=== PATIENT | male | born 1965 | race Caucasian/White ===

== ENCOUNTER 2017-06-21 09:14 | Inpatient (IN) | payer OTHER ==
[~2017-06-21 09:14] MED LIST: Acetaminophen 1,000 MG in Premix Bag 1 BAG IV SCH; Famotidine 20 MG/2 ML SDV IVPUSH SCH; Ketorolac 30 MG/ML SDV IVPUSH SCH; Ropivacaine 49.25 ML, Ketorolac 30 MG, EPINEPHrine 0.5 MG, cloNIDine 80 MCG in Sodium C... INJECT SCH; Scopolamine 1.5 MG Transdermal Patch TRDERM SCH; Tranexamic Acid 4,000 MG in Sodium Chloride 0.9% 100 ML IV SCH; ceFAZolin 2 GM in Premix Bag 1 BAG IV SCH; oxyCODONE ER 10 MG TAB.ER PO SCH
[2017-06-21] MEDS ORDERED: Propofol 200 MG/20 ML SDV ONE ×3 (09:24→12:56)
[2017-06-21] MEDS ORDERED: Lidocaine 2% 5 ML SDV ONE (09:24)
[2017-06-21] MEDS ORDERED: Midazolam 1 MG/ML 2 ML SDV ONE (09:25)
[2017-06-21] MEDS ORDERED: ePHEDrine 50 MG/ML SDV ONE (09:25)
[2017-06-21] MEDS ORDERED: fentaNYL 100 MCG/2 ML SDV ONE (09:25)
[2017-06-21] MEDS ORDERED: Ondansetron 4 MG/2 ML SDV ONE (09:25)
--- NOTE | 2017-06-21 10:02 | PCM.PREANE ---
Preanesthetic Assessment - Procedure Proposed Procedure: Right TKA - Anesthesia/Transfusion/Family Hx Anesthesia History: Prior Anesthesia Reaction Other Type of Anesthesia Reaction Comment: developed tachycardia- treated with medication Family History of Anesthesia Reaction: No Transfusion History: No Prior Transfusion(s) Additional History: sleep apnea - usses CPAP nightly at home; arrhythmias abated with cessation of chewing tobacco and caffeinated drinks; lost 100 lb over last few years - Review of Systems General: No Symptoms Pulmonary: Other (sleep apnea - CPAP) Cardiovascular: Other (HTN) Gastrointestinal: No Symptoms Neurological: Gait Disturbance (due to knee pain) Other: Reports: Diabetes (Type II, on metformin), Anxiety - Physical Assessment NPO Status Date: 06/20/17 NPO Status Time: 22:00 Height: 5 ft 8 in Weight: 260 lb ASA Class: 3 Mental Status: Alert & Oriented x3 Airway Class: Mallampati = 2 Dentition: Reports: Normal Dentition Thyro-Mental Finger Breadths: 3 Mouth Opening Finger Breadths: 3 ROM/Head Extension: Full Lungs: Clear to Auscultation, Normal Respiratory Effort Cardiovascular: Regular Rate, Regular Rhythm, No Murmurs - Allergies Allergies/Adverse Reactions: Allergies Allergy/AdvReac Type Severity Reaction Status Date / Time No Known Allergies Allergy Verified 06/17/17 14:16 - Blood Blood Available: Yes Product(s) Available: PRBC (T and S) - Anesthesia Plan Free Text/Narrative:: will check FBS Pre-Op Medication Ordered: Other (per surgeon protocol) - Acknowledgements Anesthesia Type Planned: Spinal (w/sedation; may require LMA for PP assist) Pt an Appropriate Candidate for the Planned Anesthesia: Yes Alternatives and Risks of Anesthesia Discussed w Pt/Guardian: Yes Pt/Guardian Understands and Agrees with Anesthesia Plan: Yes PreAnesthesia Questionnaire HEENT History: Reports: Other (See Below) Other HEENT History: wears glasses Cardiovascular History: Reports: Arrhythmia, High Cholesterol, Hypertension Other Cardiovascular History: hx of tachycardia- caused by caffeine and chewing tobacco Respiratory History: Reports: Sleep Apnea, Other (See Below) Other Respiratory History: C-Pap at bedtime Gastrointestinal History: Reports: None Musculoskeletal History: Reports: Arthritis, Fracture Neurological History: Reports: Concussion Endocrine/Metabolic History: Reports: Diabetes, Type II, Obesity/BMI 30+ Oncologic (Cancer) History: - Infectious Disease History Infectious Disease History: Reports: Chicken Pox - Past Surgical History Head Surgeries/Procedures: Reports: None Cardiovascular Surgical History: Reports: None Respiratory Surgical History: Reports: None GI Surgical History: Reports: None Endocrine Surgical History: Reports: None Musculoskeletal Surgical History: Reports: Other (See Below) Other Musculoskeletal Surgeries/Procedures:: ORIF left ankle- has hardware - SUBSTANCE USE Smoking Status *Q: Former Smoker Tobacco Use Within Last Twelve Months: No Second Hand Smoke Exposure: No Days Per Week of Alcohol Use: 3 Number of Drinks Per Day: 2 Total Drinks Per Week: 6 Recreational Drug Use History: No - HOME MEDS Home Medications: Home Meds Lisinopril 10 mg PO DAILY 03/10/14 [History] Pravastatin [Pravachol] 20 mg PO DAILY 03/10/14 [History] Aspirin 81 mg PO BRK 01/16/15 [History] Fish Oil/[place]-3 Fatty Acids [Fish Oil] 1 each PO TID 01/16/15 [History] metFORMIN [Glucophage XR] 500 mg PO BIDMEALS 06/17/17 [History] - CURRENT (IN HOUSE) MEDS Current Meds: Current Medications Famotidine (Pepcid) 40 mg IVPUSH [facility] Acetaminophen 1,000 mg/ Premix 100 mls @ 400 mls/hr IV [facility] Cefazolin Sodium/Dextrose 2 gm (/ Premix) 50 mls @ 100 mls/hr IV [facility] Ropivacaine 49.25 ml/Ketorolac Tromethamine 30 mg/Epinephrine HCl 0.5 mg/ Clonidine HCl 80 mcg/ Sodium Chloride 100 mls @ 50 mls/sec INJECT ASDIRECTED [facility] Lactated Ringer's (Ringers, Lactated) 1,000 mls @ 100 mls/hr IV ASDIRECTED [facility] Tranexamic Acid 4,000 mg/ (Sodium Chloride) 140 mls @ 600 mls/hr IV ASDIRECTED [facility] Ketorolac Tromethamine (Toradol) 30 mg IVPUSH [facility] Oxycodone HCl (Oxycontin) 10 mg PO [facility] Scopolamine (Transderm-Scop) 1.5 mg TRDERM [facility] Discontinued Medications Ephedrine Sulfate (Ephedrine Sulfate) Confirm Administered Dose 50 mg .ROUTE .STK-MED ONE Stop: 06/21/17 09:26 Fentanyl (Sublimaze) Confirm Administered Dose 100 mcg .ROUTE .STK-MED ONE Stop: 06/21/17 09:26 Lidocaine (Xylocaine-Mpf 2%) Confirm Administered Dose 10 ml .ROUTE .STK-MED ONE Stop: 06/21/17 09:25 Midazolam HCl (Versed 1 Mg/Ml) Confirm Administered Dose 2 mg .ROUTE .STK-MED ONE Stop: 06/21/17 09:26 Ondansetron HCl (Zofran) Confirm Administered Dose 4 mg .ROUTE .STK-MED ONE Stop: 06/21/17 09:26 Propofol (Diprivan 20 Ml) Confirm Administered Dose 400 mg .ROUTE .STK-MED ONE Stop: 06/21/17 09:25 Tranexamic Acid (Cyklokapron) Confirm Administered Dose 4,000 mg .ROUTE .STK- MED ONE Stop: 06/21/17 07:57
[2017-06-21] MEDS: Lactated Ringers 1,000 ML IV SCH ×2 (10:08→16:06)
[2017-06-21] MEDS ORDERED: Ondansetron 4 MG/2 ML SDV IV PRN (11:56)
[2017-06-21] MEDS ORDERED: HYDROmorphone/Normal Saline 6 MG/30 ML PCA Vial IV PRN (11:56)
[2017-06-21] MEDS ORDERED: Aluminum Hydroxide/Magnesium Hydroxide/Simethicone Susp 30 ML Cup PO PRN (11:58)
[2017-06-21] MEDS ORDERED: diphenhydrAMINE 25 MG Cap PO PRN (11:58)
[2017-06-21] MEDS ORDERED: Bisacodyl 10 MG Supp RECTAL PRN (11:58)
[2017-06-21] MEDS ORDERED: oxyCODONE 5 MG Tab PO PRN (11:59)
[2017-06-21] MEDS ORDERED: diphenhydrAMINE 50 MG/ML SDV ONE (12:20)
--- NOTE | 2017-06-21 13:53 | PCM.OPNOTE ---
- General Post-Op/Procedure Note Date of Surgery/Procedure: 06/21/17 Operative Procedure(s): R TKA Post-Op Diagnosis: DJD R knee Anesthesia Technique: Moderate Sedation, Spinal Primary Surgeon: Perla Sanford Pin Drafter Operator: Esperanza Prieto Pin Drafter Operator: Manish Levine EBRehan in mLs: 50 Condition: Good Free Text/Narrative:: tt=50 min #[id number]
--- NOTE | 2017-06-21 14:24 | PCM.POSTAN ---
POST ANESTHESIA ASSESSMENT - MENTAL STATUS Mental Status: Alert, Oriented - RESPIRATORY Respiratory Status: Respiratory Rate WNL, Airway Patent, O2 Saturation Stable - CARDIOVASCULAR CV Status: Pulse Rate WNL, Blood Pressure Stable - GASTROINTESTINAL GI Status: No Symptoms - PAIN Pain Score: 0 - POST OP HYDRATION Hydration Status: Adequate & Stable - OBSERVATIONS Free Text/Narrative:: Pt currently stable for discharge to phase II . No apparent anesthesia complications.
[2017-06-21] MEDS: Acetaminophen 1,000 MG in Premix Bag 1 BAG IV SCH ×2 (16:08→21:19)
--- NOTE | 2017-06-21 16:42 | CR ---
EXAMINATION: Right knee HISTORY: TKA COMPARISON: 05/25/2017 TECHNIQUE: 2 views FINDINGS/IMPRESSION: Right total knee hardware demonstrated in good position and alignment. Postopera tive soft tissue changes are noted.
[2017-06-21 16:45] LABS: CHLORIDE,CL 105 mmol/L (98-107); SODIUM,NA 139 mmol/L (136-148)
--- NOTE | 2017-06-21 16:53 | PCM.CONS ---
H&P History of Present Illness - General Date of Service: 06/21/17 Admit Problem/Dx: Admission Diagnosis/Problem Admission Diagnosis/Problem Replacement of total knee joint Source of Information: Patient, Old Records (outpatient clinic records) History Limitations: Reports: No Limitations - History of Present Illness Initial Comments - Free Text/Narative: This 51 year old male with pmh of obesity, DM type 2, HTN and sleep apnea presented today for R TKA with Dr Sanford. Hospitalist service consulted for medical management. Pre-operatively Hector felt good. A1c 5.1%. BP well controlled. He was diagnosed approximately 1 yr ago with DM type 2 and has since lost weight and improved his diet. He quit chewing tobacco 5 years ago and denies alcohol use. He returned from PACU recently and is feeling good, mild pain to R knee. No chest pain or SOB. No other concerns. at bedside. PCP, Dr Russell. - Related Data Allergies/Adverse Reactions: Allergies Allergy/AdvReac Type Severity Reaction Status Date / Time No Known Allergies Allergy Verified 06/17/17 14:16 Home Medications: Home Meds Lisinopril 10 mg PO DAILY 03/10/14 [History] Pravastatin [Pravachol] 20 mg PO DAILY 03/10/14 [History] Aspirin 81 mg PO BRK 01/16/15 [History] Fish Oil/[place]-3 Fatty Acids [Fish Oil] 3 each PO DAILY 01/16/15 [History] metFORMIN [Glucophage XR] 500 mg PO BIDMEALS 06/17/17 [History] Past Medical History HEENT History: Reports: Other (See Below) Other HEENT History: wears glasses Cardiovascular History: Reports: Arrhythmia, High Cholesterol, Hypertension. Denies: Afib, Blood Clots/VTE/DVT, Heart Failure Other Cardiovascular History: hx of tachycardia- caused by caffeine and chewing tobacco Respiratory History: Reports: Sleep Apnea (CPAP) Gastrointestinal History: Reports: None Musculoskeletal History: Reports: Arthritis, Fracture Neurological History: Reports: Concussion Endocrine/Metabolic History: Reports: Diabetes, Type II, Obesity/BMI 30+ Oncologic (Cancer) History: Reports: None - Infectious Disease History Infectious Disease History: Reports: Chicken Pox - Past Surgical History Head Surgeries/Procedures: Reports: None Cardiovascular Surgical History: Reports: None Respiratory Surgical History: Reports: None GI Surgical History: Reports: None Endocrine Surgical History: Reports: None Musculoskeletal Surgical History: Reports: Other (See Below) Other Musculoskeletal Surgeries/Procedures:: ORIF left ankle- has hardware Social & Family History - Family History Family Medical History: Noncontributory - Tobacco Use Smoking Status *Q: Former Smoker Tobacco Use Within Last Twelve Months: Smokeless Tobacco Years of Tobacco use: 30 Used Tobacco, but Quit: Yes Month/Year Tobacco Last Used: Years ago Tobacco Use Comment: quit chew 6 years ago Second Hand Smoke Exposure: No - Caffeine Use Caffeine Use: Reports: None - Alcohol Use Days Per Week of Alcohol Use: 3 Number of Drinks Per Day: 2 Total Drinks Per Week: 6 Alcohol Use Frequency: Rarely, Socially - Recreational Drug Use Recreational Drug Use: No Drug Use in Last 12 Months: No - Living Situation & Occupation Living situation: Reports: Occupation: Employed H&P Review of Systems - Review of Systems: Review Of Systems: See Below General: Reports: No Symptoms. Denies: Fever, Chills, Malaise, Weakness, Fatigue HEENT: Reports: No Symptoms. Denies: Headaches, Hearing Changes, Sinus Congestion, Sore Throat, Vertigo Pulmonary: Reports: No Symptoms. Denies: Shortness of Breath, Cough, Sputum Cardiovascular: Reports: No Symptoms. Denies: Chest Pain, Palpitations, Edema, Lightheadedness Gastrointestinal: Reports: No Symptoms. Denies: Abdominal Pain, Black Stool, Bloody Stool, Nausea, Vomiting Genitourinary: Reports: No Symptoms. Denies: Dysuria, Frequency, Burning Musculoskeletal: Reports: Joint Pain (R knee pain, tolerable, was recently given pain medication.) Psychiatric: Reports: No Symptoms Neurological: Reports: No Symptoms Hematologic/Lymphatic: Reports: No Symptoms Immunologic: Reports: No Symptoms Exam - Exam Exam: See Below - Vital Signs Vital Signs: Last Vital Signs Temp 98.1 F 06/21/17 13:43 Pulse 51 L 06/21/17 14:23 Resp 13 06/21/17 14:23 BP 99/48 L 06/21/17 14:23 Pulse Ox 99 06/21/17 14:23 Weight: 117.934 kg - Exam General: Alert, Oriented, Cooperative HEENT: Conjunctiva Clear, Mucosa Moist & [place], Nares Patent, Normal Nasal Septum , Posterior Pharynx Clear Neck: Supple, Trachea Midline, 2 Lungs: Clear to Auscultation, Normal Respiratory Effort Cardiovascular: Regular Rate, Regular Rhythm GI/Abdominal Exam: Normal Bowel Sounds, Soft, Non-Tender, No Organomegaly, No Distention, No Abnormal Bruit, No Mass, Pelvis Stable Back Exam: Normal Inspection, Full Range of Motion, NT Extremities: Normal Inspection, Normal Range of Motion, Non-Tender, No Pedal Edema, Normal Capillary Refill Skin: Incision (R tKA, dressing C/D/I, polar ice intact.) Neuro Extensive - Mental Status: Alert, Oriented x3 Neuro Extensive - Motor, Sensory, Reflexes: CN II-XII Intact Psychiatric: Alert, Normal Affect, Normal Mood - Patient Data Lab Results Last 24 hrs: Laboratory Results - last 24 hr 06/21/17 06/21/17 Range/Units 09:58 16:20 WBC 8.69 (4.0-11.0) K/uL RBC 4.46 L (4.50-5.90) M/uL Hgb 14.5 (13.0-17.0) g/dL Hct 42.4 (38.0-50.0) % MCV 95.1 (80.0-98.0) fL MCH 32.5 H (27.0-32.0) pg MCHC 34.2 (31.0-37.0) g/dL RDW Std Deviation 49.5 (28.0-62.0) fl RDW Coeff of [place] 14 (11.0-15.0) % Plt Count 231 (150-400) K/uL MPV 12.00 (7.40-12.00) fL Neut % (Auto) 48.4 (48.0-80.0) % Lymph % (Auto) 39.4 (16.0-40.0) % [place] % (Auto) 10.5 (0.0-15.0) % Eos % (Auto) 1.2 (0.0-7.0) % Baso % (Auto) 0.5 (0.0-1.5) % Neut # (Auto) 4.2 (1.4-5.7) K/uL Lymph # (Auto) 3.4 H (0.6-2.4) K/uL [place] # (Auto) 0.9 H (0.0-0.8) K/uL Eos # (Auto) 0.1 (0.0-0.7) K/uL Baso # (Auto) 0.0 (0.0-0.1) K/uL Nucleated RBC % 0.0 /100WBC Nucleated RBCs # 0 K/uL Blood Type O POSITIVE Antibody Screen NEGATIVE Result Diagrams: 06/21/17 16:20 06/21/17 16:20 Consult PN Assessment/Plan Procedures: Procedures ASSAY OF AMYLASE (11/17/15) ASSAY OF LACTIC ACID (11/17/15) ASSAY OF LIPASE (11/17/15) ASSAY OF TROPONIN QUANT (11/17/15) BLOOD CULTURE FOR BACTERIA (11/17/15) CHEST X-RAY 2VW FRONTAL&LATL (11/17/15) COMPLETE CBC W/AUTO DIFF WBC (11/17/15) COMPREHEN METABOLIC PANEL (11/17/15) CT ABD & PELVIS W/O CONTRAST (11/17/15) CULTURE SCREEN ONLY (03/10/14) ELECTROCARDIOGRAM TRACING (11/17/15) EMERGENCY DEPT VISIT (11/17/15) EMERGENCY DEPT VISIT (01/16/15) EVALUATE PT USE OF INHALER (01/16/15) HYDRATE IV INFUSION ADD-ON (11/17/15) INFLUENZA ASSAY W/OPTIC (11/17/15) LIPID PANEL (11/17/15) METABOLIC PANEL TOTAL CA (11/17/15) MRI JNT OF LWR EXTRE W/O DYE (05/25/17) PROTHROMBIN TIME (11/17/15) ROUTINE VENIPUNCTURE (11/17/15) STREP A AG IA (03/10/14) THER/PROPH/DIAG INJ IV PUSH (11/17/15) TX/PRO/DX INJ NEW DRUG ADDON (11/17/15) URINALYSIS AUTO W/SCOPE (11/17/15) X-RAY EXAM KNEE 4 OR MORE (05/25/17) (1) S/P total knee arthroplasty SNOMED Code(s): 7006957552849, 230425144, 5046131954692 Code(s): Z96.659 - PRESENCE OF UNSPECIFIED ARTIFICIAL KNEE JOINT Current Visit: Yes Qualifiers: Laterality: right Qualified Code(s): Z96.651 - Presence of right artificial knee joint (2) HTN (hypertension) SNOMED Code(s): 12567902 Code(s): I10 - ESSENTIAL (PRIMARY) HYPERTENSION Current Visit: Yes Qualifiers: Hypertension type: essential hypertension Qualified Code(s): I10 - Essential (primary) hypertension (3) DM type 2 (diabetes mellitus, type 2) SNOMED Code(s): 87819515 Code(s): E11.9 - TYPE 2 DIABETES MELLITUS WITHOUT COMPLICATIONS Current Visit: Yes Qualifiers: Diabetes mellitus alf insulin use: without alf use Diabetes mellitus complication status: without complication Qualified Code(s): E11.9 - Type 2 diabetes mellitus without complications (4) Obesity SNOMED Code(s): 687216812, 728614716 Code(s): E66.9 - OBESITY, UNSPECIFIED Current Visit: Yes (5) Sleep apnea SNOMED Code(s): 00599164 Code(s): G47.30 - SLEEP APNEA, UNSPECIFIED Current Visit: Yes Qualifiers: Sleep apnea type: unspecified type Qualified Code(s): G47.30 - Sleep apnea , unspecified Problem List Initiated/Reviewed/Updated: Yes My Orders Last 24 Hours: My Active Orders 06/21/17 16:20 BMP [BASIC METABOLIC PANEL,BMP] [CHEM] Routine 06/21/17 17:00 Insulin Aspart [NovoLOG] See Protocol SUBCUT TIDAC Plan: This 51 year old male admitted with R TKA to Dr Sanford. Hospitalist service consulted for medical management of HTN and DM type 2. 1. S/P R TKA; Orders per Orthopedics. 2. DM Type 2: Hold Metformin during admission. Novolog SSI as needed. Well controlled with A1c of 5.1. Monitor BMP, stable. 3. HTN: Stable. Continue Lisinopril. 4. Sleep apnea: Stable, continue CPAP use at night. VTE prophylaxis: ASA BID per Orthopedics
[2017-06-21] MEDS: Insulin Aspart 100 Units/ML 3 ML Pen SUBCUT SCH (17:41)
[2017-06-21] MEDS ORDERED: Pravastatin 40 MG Tab PO SCH (21:00)
[2017-06-21] MEDS: ceFAZolin 2 GM in Premix Bag 1 BAG IV SCH (21:14)
[2017-06-21] MEDS: Ketorolac 30 MG/ML SDV IVPUSH SCH (21:14)
[2017-06-21] MEDS: Docusate Sodium 100 MG Cap PO SCH (21:15)
[2017-06-21] MEDS: oxyCODONE ER 10 MG TAB.ER PO SCH (21:16)
[2017-06-22] MEDS: Ketorolac 30 MG/ML SDV IVPUSH SCH (01:15)
[2017-06-22] MEDS: Lactated Ringers 1,000 ML IV SCH (03:10)
[2017-06-22] MEDS: Acetaminophen 1,000 MG in Premix Bag 1 BAG IV SCH (04:43)
[2017-06-22] MEDS: ceFAZolin 2 GM in Premix Bag 1 BAG IV SCH (04:44)
--- NOTE | 2017-06-22 06:07 | PCM48HPAN ---
Post Anesthesia Note - EVALUATION WITHIN 48HRS OF ANESTHETIC Vital Signs in Normal Range: Yes Patient Participated in Evaluation: Yes Respiratory Function Stable: Yes Airway Patent: Yes Cardiovascular Function Stable: Yes Hydration Status Stable: Yes Pain Control Satisfactory: Yes Nausea and Vomiting Control Satisfactory: Yes Mental Status Recovered: Yes Resp Rate: 17 - COMMENTS/OBSERVATIONS Free Text/Narrative:: Pt doing great this AM. States that he is a little stiff, but pain control has been good. No reports of nausea and reeducated on his scopalamine patch. No apparent anesthesia complications.
[2017-06-22 06:25] LABS: CHLORIDE,CL 104 mmol/L (98-107); SODIUM,NA 139 mmol/L (136-148)
--- NOTE | 2017-06-22 06:39 | PCM.CONSN ---
- General Info Date of Service: 06/22/17 Admission Dx/Problem (Free Text): Admission Diagnosis/Problem Admission Diagnosis/Problem Replacement of total knee joint Subjective Update: Feeling good today. No chest pain or shortness of breath. Some knee pain. Functional Status: Reports: Pain Controlled, Tolerating Diet, Ambulating, Urinating - Review of Systems General: Reports: No Symptoms. Denies: Fever, Weakness, Fatigue HEENT: Reports: No Symptoms Pulmonary: Reports: No Symptoms. Denies: Shortness of Breath, Cough, Sputum Cardiovascular: Reports: No Symptoms. Denies: Chest Pain, Edema Gastrointestinal: Reports: No Symptoms. Denies: Abdominal Pain, Nausea, Vomiting Genitourinary: Reports: No Symptoms. Denies: Dysuria, Frequency, Burning Musculoskeletal: Reports: Joint Pain (R knee pain, but tolerable. ) Skin: Reports: No Symptoms Neurological: Reports: No Symptoms Psychiatric: Reports: No Symptoms - Patient Data Vitals - Most Recent: Last Vital Signs Temp 97.4 F 06/22/17 05:00 Pulse 69 06/22/17 05:00 Resp 17 06/22/17 06:06 BP 108/57 L 06/22/17 05:00 Pulse Ox 99 06/22/17 05:00 Weight - Most Recent: 117.934 kg I&O - Last 24 Hours: Intake & Output 06/21/17 06/21/17 06/22/17 14:59 22:59 06:59 Intake Total 2900 250 1000 Output Total 430 3200 Balance 2470 250 -2200 Lab Results Last 24 Hours: Laboratory Results - last 24 hr 06/21/17 06/21/17 06/21/17 Range/Units 09:58 15:02 16:20 WBC 8.69 (4.0-11.0) K/uL RBC 4.46 L (4.50-5.90) M/uL Hgb 14.5 (13.0-17.0) g/dL Hct 42.4 (38.0-50.0) % MCV 95.1 (80.0-98.0) fL MCH 32.5 H (27.0-32.0) pg MCHC 34.2 (31.0-37.0) g/dL RDW Std Deviation 49.5 (28.0-62.0) fl RDW Coeff of [place] 14 (11.0-15.0) % Plt Count 231 (150-400) K/uL MPV 12.00 (7.40-12.00) fL Neut % (Auto) 48.4 (48.0-80.0) % Lymph % (Auto) 39.4 (16.0-40.0) % [place] % (Auto) 10.5 (0.0-15.0) % Eos % (Auto) 1.2 (0.0-7.0) % Baso % (Auto) 0.5 (0.0-1.5) % Neut # (Auto) 4.2 (1.4-5.7) K/uL Lymph # (Auto) 3.4 H (0.6-2.4) K/uL [place] # (Auto) 0.9 H (0.0-0.8) K/uL Eos # (Auto) 0.1 (0.0-0.7) K/uL Baso # (Auto) 0.0 (0.0-0.1) K/uL Nucleated RBC % 0.0 /100WBC Nucleated RBCs # 0 K/uL Sodium (136-148) mmol/L Potassium (3.5-5.1) mmol/L Chloride (98-107) mmol/L Carbon Dioxide (21.0-32.0) mmol/L BUN (7.0-18.0) mg/dL Creatinine (0.8-1.3) mg/dL Est Cr Clr Drug Dosing mL/min Estimated GFR (MDRD) ml/min Glucose (74-106) mg/dL POC Glucose 74 (60-110) mg/dL Calcium (8.5-10.1) mg/dL Blood Type O POSITIVE Antibody Screen NEGATIVE 06/21/17 06/21/17 06/22/17 Range/Units 16:20 21:21 05:55 WBC (4.0-11.0) K/uL RBC (4.50-5.90) M/uL Hgb 13.1 (13.0-17.0) g/dL Hct 38.9 (38.0-50.0) % MCV (80.0-98.0) fL MCH (27.0-32.0) pg MCHC (31.0-37.0) g/dL RDW Std Deviation (28.0-62.0) fl RDW Coeff of [facility]cy (11.0-15.0) % Plt Count (150-400) K/uL MPV (7.40-12.00) fL Neut % (Auto) (48.0-80.0) % Lymph % (Auto) (16.0-40.0) % [place] % (Auto) (0.0-15.0) % Eos % (Auto) (0.0-7.0) % Baso % (Auto) (0.0-1.5) % Neut # (Auto) (1.4-5.7) K/uL Lymph # (Auto) (0.6-2.4) K/uL [place] # (Auto) (0.0-0.8) K/uL Eos # (Auto) (0.0-0.7) K/uL Baso # (Auto) (0.0-0.1) K/uL Nucleated RBC % /100WBC Nucleated RBCs # K/uL Sodium 139 (136-148) mmol/L Potassium 3.7 (3.5-5.1) mmol/L Chloride 105 (98-107) mmol/L Carbon Dioxide 27.3 (21.0-32.0) mmol/L BUN 10 (7.0-18.0) mg/dL Creatinine 0.9 (0.8-1.3) mg/dL Est Cr Clr Drug Dosing 93.94 mL/min Estimated GFR (MDRD) > 60.0 ml/min Glucose 91 (74-106) mg/dL POC Glucose 115 H (60-110) mg/dL Calcium 8.9 (8.5-10.1) mg/dL Blood Type Antibody Screen 06/22/17 06/22/17 Range/Units 05:55 06:21 WBC (4.0-11.0) K/uL RBC (4.50-5.90) M/uL Hgb (13.0-17.0) g/dL Hct (38.0-50.0) % MCV (80.0-98.0) fL MCH (27.0-32.0) pg MCHC (31.0-37.0) g/dL RDW Std Deviation (28.0-62.0) fl RDW Coeff of [place]cy (11.0-15.0) % Plt Count (150-400) K/uL MPV (7.40-12.00) fL Neut % (Auto) (48.0-80.0) % Lymph % (Auto) (16.0-40.0) % [place] % (Auto) (0.0-15.0) % Eos % (Auto) (0.0-7.0) % Baso % (Auto) (0.0-1.5) % Neut # (Auto) (1.4-5.7) K/uL Lymph # (Auto) (0.6-2.4) K/uL [place] # (Auto) (0.0-0.8) K/uL Eos # (Auto) (0.0-0.7) K/uL Baso # (Auto) (0.0-0.1) K/uL Nucleated RBC % /100WBC Nucleated RBCs # K/uL Sodium 139 (136-148) mmol/L Potassium 4.3 (3.5-5.1) mmol/L Chloride 104 (98-107) mmol/L Carbon Dioxide 30.9 (21.0-32.0) mmol/L BUN 14 (7.0-18.0) mg/dL Creatinine 0.9 (0.8-1.3) mg/dL Est Cr Clr Drug Dosing 93.94 mL/min Estimated GFR (MDRD) > 60.0 ml/min Glucose 92 (74-106) mg/dL POC Glucose 77 (60-110) mg/dL Calcium 8.5 (8.5-10.1) mg/dL Blood Type Antibody Screen Med Orders - Current: Current Medications Al Hydroxide/Mg Hydroxide (Mag-Al Plus) 30 ml PO Q4H PRN PRN Reason: indigestion Aspirin (Ecotrin) 325 mg PO BID [place] Bisacodyl (Dulcolax) 10 mg RECTAL DAILY PRN PRN Reason: Constipation Celecoxib (Celebrex) 200 mg PO BID [place] Diphenhydramine HCl (Benadryl) 25 - 50 mg PO Q6H PRN PRN Reason: Itching Docusate Sodium (Colace) 100 mg PO BID [facility] Last Admin: 06/21/17 21:15 Dose: 100 mg Famotidine (Pepcid) 40 mg PO DAILY [place] Hydromorphone HCl (Dilaudid [employer] 6 Mg In Ns 30 Ml) 6 mg IV ASDIRECTED PRN; Protocol PRN Reason: Pain Stop: 06/22/17 08:00 Last Admin: 06/21/17 13:53 Dose: 6 mg Hydromorphone HCl (Dilaudid) 0.5 - 1 mg IVPUSH Q3H PRN PRN Reason: Pain Lactated Ringer's (Ringers, Lactated) 1,000 mls @ 100 mls/hr IV ASDIRECTED [facility] Last Admin: 06/22/17 03:10 Dose: 100 mls/hr Insulin Aspart (Novolog) 0 unit SUBCUT TIDAC [facility]; Protocol Last Admin: 06/21/17 17:41 Dose: Not Given Lisinopril (Prinivil) 10 mg PO DAILY [facility] Ondansetron HCl (Zofran) 4 mg IV Q6HR PRN PRN Reason: NAUSEA/VOMITING Oxycodone HCl (Oxycodone) 5 - 10 mg PO Q4H PRN PRN Reason: Pain Stop: 06/22/17 08:00 Last Admin: 06/21/17 16:00 Dose: 10 mg Oxycodone HCl (Oxycontin) 10 mg PO Q12HR [facility] Last Admin: 06/21/17 21:16 Dose: 10 mg Oxycodone/Acetaminophen (Percocet 325-5 Mg) 1 - 2 tab PO Q4H PRN PRN Reason: Pain Pravastatin Sodium (Pravachol) 20 mg PO BEDTIME [facility] Last Admin: 06/21/17 21:16 Dose: 20 mg Scopolamine (Transderm-Scop) 1.5 mg TRDERM ONARRIVE [facility] Last Admin: 06/21/17 10:08 Dose: 1.5 mg Discontinued Medications Diphenhydramine HCl (Benadryl) Confirm Administered Dose 50 mg .ROUTE .STK-MED ONE Stop: 06/21/17 12:21 Ephedrine Sulfate (Ephedrine Sulfate) Confirm Administered Dose 50 mg .ROUTE .STK-MED ONE Stop: 06/21/17 09:26 Famotidine (Pepcid) 40 mg IVPUSH ONARRIVE [facility] Last Admin: 06/21/17 10:06 Dose: 40 mg Fentanyl (Sublimaze) Confirm Administered Dose 100 mcg .ROUTE .STK-MED ONE Stop: 06/21/17 09:26 Acetaminophen 1,000 mg/ Premix 100 mls @ 400 mls/hr IV ONARRIVE [facility] Last Admin: 06/21/17 10:05 Dose: 400 mls/hr Cefazolin Sodium/Dextrose 2 gm (/ Premix) 50 mls @ 100 mls/hr IV ONCALL [facility] Ropivacaine 49.25 ml/Ketorolac Tromethamine 30 mg/Epinephrine HCl 0.5 mg/ Clonidine HCl 80 mcg/ Sodium Chloride 100 mls @ 50 mls/sec INJECT ASDIRECTED [facility] Tranexamic Acid 4,000 mg/ (Sodium Chloride) 140 mls @ 600 mls/hr IV ASDIRECTED [place] Acetaminophen 1,000 mg/ Premix 100 mls @ 400 mls/hr IV Q6H [facility] Stop: 06/22/17 04:14 Last Admin: 06/22/17 04:43 Dose: 400 mls/hr Cefazolin Sodium/Dextrose 2 gm (/ Premix) 50 mls @ 100 mls/hr IV Q8H [facility] Stop: 06/22/17 04:29 Last Admin: 06/22/17 04:44 Dose: 100 mls/hr Ketorolac Tromethamine (Toradol) 30 mg IVPUSH ONARRIVE [facility] Last Admin: 06/21/17 10:07 Dose: 30 mg Ketorolac Tromethamine (Toradol) 30 mg IVPUSH Q6H [facility] Stop: 06/22/17 02:01 Last Admin: 06/22/17 01:15 Dose: 30 mg Lidocaine (Xylocaine-Mpf 2%) Confirm Administered Dose 10 ml .ROUTE .STK-MED ONE Stop: 06/21/17 09:25 Midazolam HCl (Versed 1 Mg/Ml) Confirm Administered Dose 2 mg .ROUTE .STK-MED ONE Stop: 06/21/17 09:26 Ondansetron HCl (Zofran) Confirm Administered Dose 4 mg .ROUTE .STK-MED ONE Stop: 06/21/17 09:26 Oxycodone HCl (Oxycontin) 10 mg PO ONARRIVE [facility] Last Admin: 06/21/17 10:05 Dose: 10 mg Propofol (Diprivan 20 Ml) Confirm Administered Dose 400 mg .ROUTE .STK-MED ONE Stop: 06/21/17 09:25 Propofol (Diprivan 20 Ml) Confirm Administered Dose 200 mg .ROUTE .STK-MED ONE Stop: 06/21/17 12:39 Propofol (Diprivan 20 Ml) Confirm Administered Dose 200 mg .ROUTE .STK-MED ONE Stop: 06/21/17 12:57 Tranexamic Acid (Cyklokapron) Confirm Administered Dose 4,000 mg .ROUTE .STK- MED ONE Stop: 06/21/17 07:57 - Exam General: Alert, Oriented, Cooperative, No Acute Distress Lungs: Clear to Auscultation, Normal Respiratory Effort Cardiovascular: Regular Rate, Regular Rhythm Back Exam: Normal Inspection, Full Range of Motion Extremities: Normal Inspection, Normal Range of Motion, Non-Tender, No Pedal Edema, Normal Capillary Refill Wound/Incisions: Dressing Dry and Intact (MANDIE to R knee, intact. ). No: Erythema Neurological: No New Focal Deficit Psy/Mental Status: Alert, Normal Affect, Normal Mood Consult PN Assessment/Plan Procedures: Procedures ASSAY OF AMYLASE (11/17/15) ASSAY OF LACTIC ACID (11/17/15) ASSAY OF LIPASE (11/17/15) ASSAY OF TROPONIN QUANT (11/17/15) BLOOD CULTURE FOR BACTERIA (11/17/15) CHEST X-RAY 2VW FRONTAL&LATL (11/17/15) COMPLETE CBC W/AUTO DIFF WBC (11/17/15) COMPREHEN METABOLIC PANEL (11/17/15) CT ABD & PELVIS W/O CONTRAST (11/17/15) CULTURE SCREEN ONLY (03/10/14) ELECTROCARDIOGRAM TRACING (11/17/15) EMERGENCY DEPT VISIT (11/17/15) EMERGENCY DEPT VISIT (01/16/15) EVALUATE PT USE OF INHALER (01/16/15) HYDRATE IV INFUSION ADD-ON (11/17/15) INFLUENZA ASSAY W/OPTIC (11/17/15) LIPID PANEL (11/17/15) METABOLIC PANEL TOTAL CA (11/17/15) MRI JNT OF LWR EXTRE W/O DYE (05/25/17) PROTHROMBIN TIME (11/17/15) ROUTINE VENIPUNCTURE (11/17/15) STREP A AG IA (03/10/14) THER/PROPH/DIAG INJ IV PUSH (11/17/15) TX/PRO/DX INJ NEW DRUG ADDON (11/17/15) URINALYSIS AUTO W/SCOPE (11/17/15) X-RAY EXAM KNEE 4 OR MORE (05/25/17) (1) S/P total knee arthroplasty SNOMED Code(s): 4998917415513, 695839129, 8941968663604 Code(s): Z96.659 - PRESENCE OF UNSPECIFIED ARTIFICIAL KNEE JOINT Current Visit: Yes Qualifiers: Laterality: right Qualified Code(s): Z96.651 - Presence of right artificial knee joint (2) HTN (hypertension) SNOMED Code(s): 05736864 Code(s): I10 - ESSENTIAL (PRIMARY) HYPERTENSION Current Visit: Yes Qualifiers: Hypertension type: essential hypertension Qualified Code(s): I10 - Essential (primary) hypertension (3) DM type 2 (diabetes mellitus, type 2) SNOMED Code(s): 73016228 Code(s): E11.9 - TYPE 2 DIABETES MELLITUS WITHOUT COMPLICATIONS Current Visit: Yes Qualifiers: Diabetes mellitus exterminator insulin use: without exterminator use Diabetes mellitus complication status: without complication Qualified Code(s): E11.9 - Type 2 diabetes mellitus without complications (4) Obesity SNOMED Code(s): 704145362, 833146932 Code(s): E66.9 - OBESITY, UNSPECIFIED Current Visit: Yes (5) Sleep apnea SNOMED Code(s): 58798057 Code(s): G47.30 - SLEEP APNEA, UNSPECIFIED Current Visit: Yes Qualifiers: Sleep apnea type: unspecified type Qualified Code(s): G47.30 - Sleep apnea , unspecified Problem List Initiated/Reviewed/Updated: Yes My Orders Last 24 Hours: My Active Orders 06/21/17 17:00 Insulin Aspart [NovoLOG] See Protocol SUBCUT [facility] 06/23/17 05:11 BMP [BASIC METABOLIC PANEL,BMP] [CHEM] AM Plan: This 51 year old male admitted with R TKA to Dr Sanford. Hospitalist service consulted for medical management of HTN and DM type 2. 1. S/P R TKA; Orders per Orthopedics. 2. DM Type 2: BS well controlled. Hold Metformin during admission. Novolog SSI as needed. Well controlled with A1c of 5.1. Monitor BMP, stable. 3. HTN: Stable. Continue Lisinopril. 4. Sleep apnea: Stable, continue CPAP use at night. VTE prophylaxis: ASA BID per Orthopedics
[2017-06-22] MEDS: Insulin Aspart 100 Units/ML 3 ML Pen SUBCUT SCH ×2 (07:45→11:35)
[2017-06-22] MEDS ORDERED: HYDROmorphone 1 MG/ML Syringe IVPUSH PRN (08:00)
[2017-06-22] MEDS ORDERED: Acetaminophen/oxyCODONE 325-5 MG Tab PO PRN (08:00)
--- NOTE | 2017-06-22 08:03 | PCM.SURGPN ---
- General Info Date of Service: 06/22/17 Date of Surgery/Procedure: 06/21/17 POD#: 1 - Review of Systems Systems Review Comment:: NAEO. Having some pain in right knee but oral pain medications keeping it tolerable. Denies fever, chill, nausea, vomiting, chest pain, or SOB. Up in chair, has not yet worked with PT. Tolerating oral intake. Watson in place. - Patient Data Vitals - Most Recent: Last Vital Signs Temp 36.3 C 06/22/17 05:00 Pulse 69 06/22/17 05:00 Resp 17 06/22/17 06:06 BP 108/57 L 06/22/17 05:00 Pulse Ox 99 06/22/17 05:00 Weight - Most Recent: 117.934 kg I&O - Last 24 Hours: Intake & Output 06/21/17 06/22/17 06/22/17 22:59 06:59 14:59 Intake Total 250 1000 Output Total 3200 Balance 250 -2200 Lab Results Last 24 Hrs: Laboratory Results - last 24 hr 06/21/17 06/21/17 06/21/17 Range/Units 09:58 15:02 16:20 WBC 8.69 (4.0-11.0) K/uL RBC 4.46 L (4.50-5.90) M/uL Hgb 14.5 (13.0-17.0) g/dL Hct 42.4 (38.0-50.0) % MCV 95.1 (80.0-98.0) fL MCH 32.5 H (27.0-32.0) pg MCHC 34.2 (31.0-37.0) g/dL RDW Std Deviation 49.5 (28.0-62.0) fl RDW Coeff of [place] 14 (11.0-15.0) % Plt Count 231 (150-400) K/uL MPV 12.00 (7.40-12.00) fL Neut % (Auto) 48.4 (48.0-80.0) % Lymph % (Auto) 39.4 (16.0-40.0) % [place] % (Auto) 10.5 (0.0-15.0) % Eos % (Auto) 1.2 (0.0-7.0) % Baso % (Auto) 0.5 (0.0-1.5) % Neut # (Auto) 4.2 (1.4-5.7) K/uL Lymph # (Auto) 3.4 H (0.6-2.4) K/uL [place] # (Auto) 0.9 H (0.0-0.8) K/uL Eos # (Auto) 0.1 (0.0-0.7) K/uL Baso # (Auto) 0.0 (0.0-0.1) K/uL Nucleated RBC % 0.0 /100WBC Nucleated RBCs # 0 K/uL Sodium (136-148) mmol/L Potassium (3.5-5.1) mmol/L Chloride (98-107) mmol/L Carbon Dioxide (21.0-32.0) mmol/L BUN (7.0-18.0) mg/dL Creatinine (0.8-1.3) mg/dL Est Cr Clr Drug Dosing mL/min Estimated GFR (MDRD) ml/min Glucose (74-106) mg/dL POC Glucose 74 (60-110) mg/dL Calcium (8.5-10.1) mg/dL Blood Type O POSITIVE Antibody Screen NEGATIVE 06/21/17 06/21/17 06/22/17 Range/Units 16:20 21:21 05:55 WBC (4.0-11.0) K/uL RBC (4.50-5.90) M/uL Hgb 13.1 (13.0-17.0) g/dL Hct 38.9 (38.0-50.0) % MCV (80.0-98.0) fL MCH (27.0-32.0) pg MCHC (31.0-37.0) g/dL RDW Std Deviation (28.0-62.0) fl RDW Coeff of [place] (11.0-15.0) % Plt Count (150-400) K/uL MPV (7.40-12.00) fL Neut % (Auto) (48.0-80.0) % Lymph % (Auto) (16.0-40.0) % [place] % (Auto) (0.0-15.0) % Eos % (Auto) (0.0-7.0) % Baso % (Auto) (0.0-1.5) % Neut # (Auto) (1.4-5.7) K/uL Lymph # (Auto) (0.6-2.4) K/uL [place] # (Auto) (0.0-0.8) K/uL Eos # (Auto) (0.0-0.7) K/uL Baso # (Auto) (0.0-0.1) K/uL Nucleated RBC % /100WBC Nucleated RBCs # K/uL Sodium 139 (136-148) mmol/L Potassium 3.7 (3.5-5.1) mmol/L Chloride 105 (98-107) mmol/L Carbon Dioxide 27.3 (21.0-32.0) mmol/L BUN 10 (7.0-18.0) mg/dL Creatinine 0.9 (0.8-1.3) mg/dL Est Cr Clr Drug Dosing 93.94 mL/min Estimated GFR (MDRD) > 60.0 ml/min Glucose 91 (74-106) mg/dL POC Glucose 115 H (60-110) mg/dL Calcium 8.9 (8.5-10.1) mg/dL Blood Type Antibody Screen 06/22/17 06/22/17 Range/Units 05:55 06:21 WBC (4.0-11.0) K/uL RBC (4.50-5.90) M/uL Hgb (13.0-17.0) g/dL Hct (38.0-50.0) % MCV (80.0-98.0) fL MCH (27.0-32.0) pg MCHC (31.0-37.0) g/dL RDW Std Deviation (28.0-62.0) fl RDW Coeff of [place]cy (11.0-15.0) % Plt Count (150-400) K/uL MPV (7.40-12.00) fL Neut % (Auto) (48.0-80.0) % Lymph % (Auto) (16.0-40.0) % [place] % (Auto) (0.0-15.0) % Eos % (Auto) (0.0-7.0) % Baso % (Auto) (0.0-1.5) % Neut # (Auto) (1.4-5.7) K/uL Lymph # (Auto) (0.6-2.4) K/uL [place] # (Auto) (0.0-0.8) K/uL Eos # (Auto) (0.0-0.7) K/uL Baso # (Auto) (0.0-0.1) K/uL Nucleated RBC % /100WBC Nucleated RBCs # K/uL Sodium 139 (136-148) mmol/L Potassium 4.3 (3.5-5.1) mmol/L Chloride 104 (98-107) mmol/L Carbon Dioxide 30.9 (21.0-32.0) mmol/L BUN 14 (7.0-18.0) mg/dL Creatinine 0.9 (0.8-1.3) mg/dL Est Cr Clr Drug Dosing 93.94 mL/min Estimated GFR (MDRD) > 60.0 ml/min Glucose 92 (74-106) mg/dL POC Glucose 77 (60-110) mg/dL Calcium 8.5 (8.5-10.1) mg/dL Blood Type Antibody Screen Med Orders - Current: Current Medications Al Hydroxide/Mg Hydroxide (Mag-Al Plus) 30 ml PO Q4H PRN PRN Reason: indigestion Aspirin (Ecotrin) 325 mg PO BID [facility] Bisacodyl (Dulcolax) 10 mg RECTAL DAILY PRN PRN Reason: Constipation Celecoxib (Celebrex) 200 mg PO BID [facility] Diphenhydramine HCl (Benadryl) 25 - 50 mg PO Q6H PRN PRN Reason: Itching Docusate Sodium (Colace) 100 mg PO BID [facility] Last Admin: 06/21/17 21:15 Dose: 100 mg Famotidine (Pepcid) 40 mg PO DAILY [facility] Hydromorphone HCl (Dilaudid) 0.5 - 1 mg IVPUSH Q3H PRN PRN Reason: Pain Lactated Ringer's (Ringers, Lactated) 1,000 mls @ 100 mls/hr IV ASDIRECTED [facility] Last Admin: 06/22/17 03:10 Dose: 100 mls/hr Insulin Aspart (Novolog) 0 unit SUBCUT TIDAC [facility]; Protocol Last Admin: 06/22/17 07:45 Dose: Not Given Lisinopril (Prinivil) 10 mg PO DAILY [facility] Ondansetron HCl (Zofran) 4 mg IV Q6HR PRN PRN Reason: NAUSEA/VOMITING Oxycodone HCl (Oxycontin) 10 mg PO Q12HR [facility] Last Admin: 06/21/17 21:16 Dose: 10 mg Oxycodone/Acetaminophen (Percocet 325-5 Mg) 1 - 2 tab PO Q4H PRN PRN Reason: Pain Pravastatin Sodium (Pravachol) 20 mg PO BEDTIME [facility] Last Admin: 06/21/17 21:16 Dose: 20 mg Scopolamine (Transderm-Scop) 1.5 mg TRDERM ONARRIVE [facility] Last Admin: 06/21/17 10:08 Dose: 1.5 mg Discontinued Medications Diphenhydramine HCl (Benadryl) Confirm Administered Dose 50 mg .ROUTE .STK-MED ONE Stop: 06/21/17 12:21 Ephedrine Sulfate (Ephedrine Sulfate) Confirm Administered Dose 50 mg .ROUTE .STK-MED ONE Stop: 06/21/17 09:26 Famotidine (Pepcid) 40 mg IVPUSH ONARRIVE [facility] Last Admin: 06/21/17 10:06 Dose: 40 mg Fentanyl (Sublimaze) Confirm Administered Dose 100 mcg .ROUTE .STK-MED ONE Stop: 06/21/17 09:26 Hydromorphone HCl (Dilaudid [employer]st 6 Mg In Ns 30 Ml) 6 mg IV ASDIRECTED PRN; Protocol PRN Reason: Pain Stop: 06/22/17 08:00 Last Admin: 06/21/17 13:53 Dose: 6 mg Acetaminophen 1,000 mg/ Premix 100 mls @ 400 mls/hr IV ONARRIVE [facility] Last Admin: 06/21/17 10:05 Dose: 400 mls/hr Cefazolin Sodium/Dextrose 2 gm (/ Premix) 50 mls @ 100 mls/hr IV ONCALL [facility] Ropivacaine 49.25 ml/Ketorolac Tromethamine 30 mg/Epinephrine HCl 0.5 mg/ Clonidine HCl 80 mcg/ Sodium Chloride 100 mls @ 50 mls/sec INJECT ASDIRECTED [facility] Tranexamic Acid 4,000 mg/ (Sodium Chloride) 140 mls @ 600 mls/hr IV ASDIRECTED [facility] Acetaminophen 1,000 mg/ Premix 100 mls @ 400 mls/hr IV Q6H [facility] Stop: 06/22/17 04:14 Last Admin: 06/22/17 04:43 Dose: 400 mls/hr Cefazolin Sodium/Dextrose 2 gm (/ Premix) 50 mls @ 100 mls/hr IV Q8H [facility] Stop: 06/22/17 04:29 Last Admin: 06/22/17 04:44 Dose: 100 mls/hr Ketorolac Tromethamine (Toradol) 30 mg IVPUSH ONARRIVE [facility] Last Admin: 06/21/17 10:07 Dose: 30 mg Ketorolac Tromethamine (Toradol) 30 mg IVPUSH Q6H [facility] Stop: 06/22/17 02:01 Last Admin: 06/22/17 01:15 Dose: 30 mg Lidocaine (Xylocaine-Mpf 2%) Confirm Administered Dose 10 ml .ROUTE .STK-MED ONE Stop: 06/21/17 09:25 Midazolam HCl (Versed 1 Mg/Ml) Confirm Administered Dose 2 mg .ROUTE .STK-MED ONE Stop: 06/21/17 09:26 Ondansetron HCl (Zofran) Confirm Administered Dose 4 mg .ROUTE .STK-MED ONE Stop: 06/21/17 09:26 Oxycodone HCl (Oxycontin) 10 mg PO ONARRIVE [facility] Last Admin: 06/21/17 10:05 Dose: 10 mg Oxycodone HCl (Oxycodone) 5 - 10 mg PO Q4H PRN PRN Reason: Pain Stop: 06/22/17 08:00 Last Admin: 06/21/17 16:00 Dose: 10 mg Propofol (Diprivan 20 Ml) Confirm Administered Dose 400 mg .ROUTE .STK-MED ONE Stop: 06/21/17 09:25 Propofol (Diprivan 20 Ml) Confirm Administered Dose 200 mg .ROUTE .STK-MED ONE Stop: 06/21/17 12:39 Propofol (Diprivan 20 Ml) Confirm Administered Dose 200 mg .ROUTE .STK-MED ONE Stop: 06/21/17 12:57 Tranexamic Acid (Cyklokapron) Confirm Administered Dose 4,000 mg .ROUTE .STK- MED ONE Stop: 06/21/17 07:57 - Exam Wound/Incisions: Dressing Dry and Intact General: Alert, No Acute Distress Lungs: Clear to Auscultation Cardiovascular: Regular Rate GI/Abdominal Exam: Soft Extremities: Other (RLE dressing c/d/i. Appropriately tender along incision. Distal motor and sensation intact. Extremity warm and perfused. ) - Problem List Review Problem List Initiated/Reviewed/Updated: Yes - My Orders Last 24 Hours: Active Orders 24 hr Category Date Time Status Activity as Tolerated [RC] .Routine Care 06/21/17 11:56 Active Blood Glucose Check, Bedside [RC] ACBED Care 06/21/17 11:56 Active Insert Urinary Catheter [OM.PC] Q24H Care 06/21/17 08:00 Ordered Intake and Output [RC] Q12H Care 06/21/17 11:56 Active Neurovascular Check [RC] Q2HR Care 06/21/17 11:56 Active Notify Provider Consults [RC] ASDIRECTED Care 06/21/17 12:00 Active Notify Provider Vital Signs [RC] ASDIRECTED Care 06/21/17 11:56 Active RT Incentive Spirometry [RC] ASDIRECTED Care 06/21/17 11:56 Active Urinary Catheter Assessment [RC] Q12H Care 06/21/17 08:00 Active Vital Signs [RC] Q4H Care 06/21/17 11:56 Active Consult to Physician [CONS] Routine Cons 06/21/17 11:55 Active PT Evaluation and Treatment [CONS] Routine Cons 06/21/17 11:55 Active BMP [BASIC METABOLIC PANEL,BMP] [CHEM] AM Lab 06/23/17 05:11 Ordered HEMOGLOBIN/HEMATOCRIT,HH [HEME] DAILY Lab 06/23/17 06:00 Ordered HEMOGLOBIN/HEMATOCRIT,HH [HEME] DAILY Lab 06/24/17 06:00 Ordered Acetaminophen/oxyCODONE [Percocet 325-5 MG] Med 06/22/17 08:00 Active 1 - 2 tab PO Q4H PRN Alum Hydrox/Mag Hydrox/Simeth [Mag-Al Plus] Med 06/21/17 11:58 Active 30 ml PO Q4H PRN Aspirin [Ecotrin] Med 06/22/17 09:00 Active 325 mg PO BID Bisacodyl [Dulcolax] Med 06/21/17 11:58 Active 10 mg RECTAL DAILY PRN Celecoxib [CeleBREX] Med 06/22/17 09:00 Active 200 mg PO BID Docusate Sodium [Colace] Med 06/21/17 21:00 Active 100 mg PO BID Famotidine [Pepcid] Med 06/22/17 09:00 Active 40 mg PO DAILY HYDROmorphone [Dilaudid] Med 06/22/17 08:00 Active 0.5 - 1 mg IVPUSH Q3H PRN Insulin Aspart [NovoLOG] Med 06/21/17 17:00 Active See Protocol SUBCUT TIDAC Lisinopril [Prinivil] Med 06/22/17 09:00 Active 10 mg PO DAILY Ondansetron [Zofran] Med 06/21/17 11:56 Active 4 mg IV Q6HR PRN Pravastatin [Pravachol] Med 06/21/17 21:00 Active 20 mg PO BEDTIME diphenhydrAMINE [Benadryl] Med 06/21/17 11:58 Active 25 - 50 mg PO Q6H PRN oxyCODONE ER [OxyCONTIN] Med 06/21/17 21:00 Active 10 mg PO Q12HR Antiembolic Hose [OM.PC] Routine Oth 06/21/17 11:56 Ordered Ice Therapy [OM.PC] Routine Oth 06/21/17 11:56 Ordered Sequential Compression Device [OM.PC] Routine Oth 06/21/17 11:56 Ordered Medication Orders Al Hydroxide/Mg Hydroxide (Mag-Al Plus) 30 ml PO Q4H PRN PRN Reason: indigestion Aspirin (Ecotrin) 325 mg PO BID [facility] Bisacodyl (Dulcolax) 10 mg RECTAL DAILY PRN PRN Reason: Constipation Celecoxib (Celebrex) 200 mg PO BID [facility] Diphenhydramine HCl (Benadryl) 25 - 50 mg PO Q6H PRN PRN Reason: Itching Docusate Sodium (Colace) 100 mg PO BID [facility] Last Admin: 06/21/17 21:15 Dose: 100 mg Famotidine (Pepcid) 40 mg PO DAILY [facility] Hydromorphone HCl (Dilaudid) 0.5 - 1 mg IVPUSH Q3H PRN PRN Reason: Pain Lactated Ringer's (Ringers, Lactated) 1,000 mls @ 100 mls/hr IV ASDIRECTED [facility] Last Admin: 06/22/17 03:10 Dose: 100 mls/hr Infusion: 06/22/17 02:06 Dose: 100 mls/hr Admin: 06/21/17 16:06 Dose: 100 mls/hr Infusion: 06/21/17 16:06 Dose: 100 mls/hr Admin: 06/21/17 10:08 Dose: 100 mls/hr Insulin Aspart (Novolog) 0 unit SUBCUT TIDAC [facility]; Protocol Last Admin: 06/22/17 07:45 Dose: Not Given Admin: 06/21/17 17:41 Dose: Not Given Lisinopril (Prinivil) 10 mg PO DAILY [facility] Ondansetron HCl (Zofran) 4 mg IV Q6HR PRN PRN Reason: NAUSEA/VOMITING Oxycodone HCl (Oxycontin) 10 mg PO Q12HR [facility] Last Admin: 06/21/17 21:16 Dose: 10 mg Oxycodone/Acetaminophen (Percocet 325-5 Mg) 1 - 2 tab PO Q4H PRN PRN Reason: Pain Pravastatin Sodium (Pravachol) 20 mg PO BEDTIME [facility] Last Admin: 06/21/17 21:16 Dose: 20 mg Scopolamine (Transderm-Scop) 1.5 mg TRDERM ONARRIVE [facility] Last Admin: 06/21/17 10:08 Dose: 1.5 mg - Assessment Assessment (Free Text/Narrative):: 51 yr old male POD#1 right TKA. Doing well this am. HGB appropriate. HR 54-70s. BP 100-140s systolic. Afebrile. - Plan Plan (Free Text/Narrative):: Diet as tolerated ASA BID PO pain regimen PT to see today Encourage ambulation and OOB Remove watson this am Possible discharge later today if continues to do well
[2017-06-22] MEDS ORDERED: Sodium Chloride 0.9% 2.5 ML Syringe FLUSH PRN (08:08)
[2017-06-22] MEDS ORDERED: Sodium Chloride 0.9% 10 ML Syringe FLUSH PRN (08:08)
--- NOTE | 2017-06-22 08:08 | PCM.SURGPN ---
- General Info Date of Service: 06/22/17 Date of Surgery/Procedure: 06/21/17 POD#: 1 Functional Status: Reports: Pain Controlled, Tolerating Diet, Ambulating - Review of Systems General: Reports: No Symptoms Pulmonary: Reports: No Symptoms. Denies: Shortness of Breath Cardiovascular: Reports: No Symptoms. Denies: Chest Pain Gastrointestinal: Reports: No Symptoms. Denies: Nausea, Vomiting Musculoskeletal: Reports: Leg Pain Systems Review Comment:: pt up to chair for breakfast pain controlled through night no specific concerns today states he feels like the dressing is slipping - Patient Data Vitals - Most Recent: Last Vital Signs Temp 97.4 F 06/22/17 05:00 Pulse 69 06/22/17 05:00 Resp 17 06/22/17 06:06 BP 108/57 L 06/22/17 05:00 Pulse Ox 99 06/22/17 05:00 Weight - Most Recent: 117.934 kg I&O - Last 24 Hours: Intake & Output 06/21/17 06/22/17 06/22/17 22:59 06:59 14:59 Intake Total 250 1000 Output Total 3200 Balance 250 -2200 Lab Results Last 24 Hrs: Laboratory Results - last 24 hr 06/21/17 06/21/17 06/21/17 Range/Units 09:58 15:02 16:20 WBC 8.69 (4.0-11.0) K/uL RBC 4.46 L (4.50-5.90) M/uL Hgb 14.5 (13.0-17.0) g/dL Hct 42.4 (38.0-50.0) % MCV 95.1 (80.0-98.0) fL MCH 32.5 H (27.0-32.0) pg MCHC 34.2 (31.0-37.0) g/dL RDW Std Deviation 49.5 (28.0-62.0) fl RDW Coeff of Mercy 14 (11.0-15.0) % Plt Count 231 (150-400) K/uL MPV 12.00 (7.40-12.00) fL Neut % (Auto) 48.4 (48.0-80.0) % Lymph % (Auto) 39.4 (16.0-40.0) % [place] % (Auto) 10.5 (0.0-15.0) % Eos % (Auto) 1.2 (0.0-7.0) % Baso % (Auto) 0.5 (0.0-1.5) % Neut # (Auto) 4.2 (1.4-5.7) K/uL Lymph # (Auto) 3.4 H (0.6-2.4) K/uL [place] # (Auto) 0.9 H (0.0-0.8) K/uL Eos # (Auto) 0.1 (0.0-0.7) K/uL Baso # (Auto) 0.0 (0.0-0.1) K/uL Nucleated RBC % 0.0 /100WBC Nucleated RBCs # 0 K/uL Sodium (136-148) mmol/L Potassium (3.5-5.1) mmol/L Chloride (98-107) mmol/L Carbon Dioxide (21.0-32.0) mmol/L BUN (7.0-18.0) mg/dL Creatinine (0.8-1.3) mg/dL Est Cr Clr Drug Dosing mL/min Estimated GFR (MDRD) ml/min Glucose (74-106) mg/dL POC Glucose 74 (60-110) mg/dL Calcium (8.5-10.1) mg/dL Blood Type O POSITIVE Antibody Screen NEGATIVE 06/21/17 06/21/17 06/22/17 Range/Units 16:20 21:21 05:55 WBC (4.0-11.0) K/uL RBC (4.50-5.90) M/uL Hgb 13.1 (13.0-17.0) g/dL Hct 38.9 (38.0-50.0) % MCV (80.0-98.0) fL MCH (27.0-32.0) pg MCHC (31.0-37.0) g/dL RDW Std Deviation (28.0-62.0) fl RDW Coeff of Mercy (11.0-15.0) % Plt Count (150-400) K/uL MPV (7.40-12.00) fL Neut % (Auto) (48.0-80.0) % Lymph % (Auto) (16.0-40.0) % [place] % (Auto) (0.0-15.0) % Eos % (Auto) (0.0-7.0) % Baso % (Auto) (0.0-1.5) % Neut # (Auto) (1.4-5.7) K/uL Lymph # (Auto) (0.6-2.4) K/uL [place] # (Auto) (0.0-0.8) K/uL Eos # (Auto) (0.0-0.7) K/uL Baso # (Auto) (0.0-0.1) K/uL Nucleated RBC % /100WBC Nucleated RBCs # K/uL Sodium 139 (136-148) mmol/L Potassium 3.7 (3.5-5.1) mmol/L Chloride 105 (98-107) mmol/L Carbon Dioxide 27.3 (21.0-32.0) mmol/L BUN 10 (7.0-18.0) mg/dL Creatinine 0.9 (0.8-1.3) mg/dL Est Cr Clr Drug Dosing 93.94 mL/min Estimated GFR (MDRD) > 60.0 ml/min Glucose 91 (74-106) mg/dL POC Glucose 115 H (60-110) mg/dL Calcium 8.9 (8.5-10.1) mg/dL Blood Type Antibody Screen 06/22/17 06/22/17 Range/Units 05:55 06:21 WBC (4.0-11.0) K/uL RBC (4.50-5.90) M/uL Hgb (13.0-17.0) g/dL Hct (38.0-50.0) % MCV (80.0-98.0) fL MCH (27.0-32.0) pg MCHC (31.0-37.0) g/dL RDW Std Deviation (28.0-62.0) fl RDW Coeff of Mercy (11.0-15.0) % Plt Count (150-400) K/uL MPV (7.40-12.00) fL Neut % (Auto) (48.0-80.0) % Lymph % (Auto) (16.0-40.0) % [place] % (Auto) (0.0-15.0) % Eos % (Auto) (0.0-7.0) % Baso % (Auto) (0.0-1.5) % Neut # (Auto) (1.4-5.7) K/uL Lymph # (Auto) (0.6-2.4) K/uL [place] # (Auto) (0.0-0.8) K/uL Eos # (Auto) (0.0-0.7) K/uL Baso # (Auto) (0.0-0.1) K/uL Nucleated RBC % /100WBC Nucleated RBCs # K/uL Sodium 139 (136-148) mmol/L Potassium 4.3 (3.5-5.1) mmol/L Chloride 104 (98-107) mmol/L Carbon Dioxide 30.9 (21.0-32.0) mmol/L BUN 14 (7.0-18.0) mg/dL Creatinine 0.9 (0.8-1.3) mg/dL Est Cr Clr Drug Dosing 93.94 mL/min Estimated GFR (MDRD) > 60.0 ml/min Glucose 92 (74-106) mg/dL POC Glucose 77 (60-110) mg/dL Calcium 8.5 (8.5-10.1) mg/dL Blood Type Antibody Screen Med Orders - Current: Current Medications Al Hydroxide/Mg Hydroxide (Mag-Al Plus) 30 ml PO Q4H PRN PRN Reason: indigestion Aspirin (Ecotrin) 325 mg PO BID [facility] Bisacodyl (Dulcolax) 10 mg RECTAL DAILY PRN PRN Reason: Constipation Celecoxib (Celebrex) 200 mg PO BID [facility] Diphenhydramine HCl (Benadryl) 25 - 50 mg PO Q6H PRN PRN Reason: Itching Docusate Sodium (Colace) 100 mg PO BID [facility] Last Admin: 06/21/17 21:15 Dose: 100 mg Famotidine (Pepcid) 40 mg PO DAILY [facility] Hydromorphone HCl (Dilaudid) 0.5 - 1 mg IVPUSH Q3H PRN PRN Reason: Pain Lactated Ringer's (Ringers, Lactated) 1,000 mls @ 100 mls/hr IV ASDIRECTED [facility] Last Admin: 06/22/17 03:10 Dose: 100 mls/hr Insulin Aspart (Novolog) 0 unit SUBCUT TIDAC [facility]; Protocol Last Admin: 06/22/17 07:45 Dose: Not Given Lisinopril (Prinivil) 10 mg PO DAILY [facility] Ondansetron HCl (Zofran) 4 mg IV Q6HR PRN PRN Reason: NAUSEA/VOMITING Oxycodone HCl (Oxycontin) 10 mg PO Q12HR [facility] Last Admin: 06/21/17 21:16 Dose: 10 mg Oxycodone/Acetaminophen (Percocet 325-5 Mg) 1 - 2 tab PO Q4H PRN PRN Reason: Pain Pravastatin Sodium (Pravachol) 20 mg PO BEDTIME [facility] Last Admin: 06/21/17 21:16 Dose: 20 mg Scopolamine (Transderm-Scop) 1.5 mg TRDERM ONARRIVE [facility] Last Admin: 06/21/17 10:08 Dose: 1.5 mg Discontinued Medications Diphenhydramine HCl (Benadryl) Confirm Administered Dose 50 mg .ROUTE .STK-MED ONE Stop: 06/21/17 12:21 Ephedrine Sulfate (Ephedrine Sulfate) Confirm Administered Dose 50 mg .ROUTE .STK-MED ONE Stop: 06/21/17 09:26 Famotidine (Pepcid) 40 mg IVPUSH ONARRIVE [facility] Last Admin: 06/21/17 10:06 Dose: 40 mg Fentanyl (Sublimaze) Confirm Administered Dose 100 mcg .ROUTE .STK-MED ONE Stop: 06/21/17 09:26 Hydromorphone HCl (Dilaudid [employer]ing 6 Mg In Ns 30 Ml) 6 mg IV ASDIRECTED PRN; Protocol PRN Reason: Pain Stop: 06/22/17 08:00 Last Admin: 06/21/17 13:53 Dose: 6 mg Acetaminophen 1,000 mg/ Premix 100 mls @ 400 mls/hr IV ONARRIVE [facility] Last Admin: 06/21/17 10:05 Dose: 400 mls/hr Cefazolin Sodium/Dextrose 2 gm (/ Premix) 50 mls @ 100 mls/hr IV ONCALL [facility] Ropivacaine 49.25 ml/Ketorolac Tromethamine 30 mg/Epinephrine HCl 0.5 mg/ Clonidine HCl 80 mcg/ Sodium Chloride 100 mls @ 50 mls/sec INJECT ASDIRECTED [facility] Tranexamic Acid 4,000 mg/ (Sodium Chloride) 140 mls @ 600 mls/hr IV ASDIRECTED [facility] Acetaminophen 1,000 mg/ Premix 100 mls @ 400 mls/hr IV Q6H [facility] Stop: 06/22/17 04:14 Last Admin: 06/22/17 04:43 Dose: 400 mls/hr Cefazolin Sodium/Dextrose 2 gm (/ Premix) 50 mls @ 100 mls/hr IV Q8H [facility] Stop: 06/22/17 04:29 Last Admin: 06/22/17 04:44 Dose: 100 mls/hr Ketorolac Tromethamine (Toradol) 30 mg IVPUSH ONARRIVE [facility] Last Admin: 06/21/17 10:07 Dose: 30 mg Ketorolac Tromethamine (Toradol) 30 mg IVPUSH Q6H [facility] Stop: 06/22/17 02:01 Last Admin: 06/22/17 01:15 Dose: 30 mg Lidocaine (Xylocaine-Mpf 2%) Confirm Administered Dose 10 ml .ROUTE .STK-MED ONE Stop: 06/21/17 09:25 Midazolam HCl (Versed 1 Mg/Ml) Confirm Administered Dose 2 mg .ROUTE .STK-MED ONE Stop: 06/21/17 09:26 Ondansetron HCl (Zofran) Confirm Administered Dose 4 mg .ROUTE .STK-MED ONE Stop: 06/21/17 09:26 Oxycodone HCl (Oxycontin) 10 mg PO ONARRIVE [facility] Last Admin: 06/21/17 10:05 Dose: 10 mg Oxycodone HCl (Oxycodone) 5 - 10 mg PO Q4H PRN PRN Reason: Pain Stop: 06/22/17 08:00 Last Admin: 06/21/17 16:00 Dose: 10 mg Propofol (Diprivan 20 Ml) Confirm Administered Dose 400 mg .ROUTE .STK-MED ONE Stop: 06/21/17 09:25 Propofol (Diprivan 20 Ml) Confirm Administered Dose 200 mg .ROUTE .STK-MED ONE Stop: 06/21/17 12:39 Propofol (Diprivan 20 Ml) Confirm Administered Dose 200 mg .ROUTE .STK-MED ONE Stop: 06/21/17 12:57 Tranexamic Acid (Cyklokapron) Confirm Administered Dose 4,000 mg .ROUTE .STK- MED ONE Stop: 06/21/17 07:57 - Exam Wound/Incisions: Dressing Dry and Intact. No: Drainage, Erythema General: Alert, Oriented Cardiovascular: Regular Rate, Regular Rhythm Extremities: Other (exam RLE - incision clean/dry/yessy intact, at/ehl/ gastroc 5/5, dp 2+, sensation intact distally) Physical Findings Comment:: vss, afeb UO 3000+mL hgb 13.1 - Problem List Review Problem List Initiated/Reviewed/Updated: Yes - My Orders Last 24 Hours: Active Orders 24 hr Category Date Time Status Activity as Tolerated [RC] .Routine Care 06/21/17 11:56 Active Blood Glucose Check, Bedside [RC] ACBED Care 06/21/17 11:56 Active Insert Urinary Catheter [OM.PC] Q24H Care 06/21/17 08:00 Ordered Intake and Output [RC] Q12H Care 06/21/17 11:56 Active Neurovascular Check [RC] Q2HR Care 06/21/17 11:56 Active Notify Provider Consults [RC] ASDIRECTED Care 06/21/17 12:00 Active Notify Provider Vital Signs [RC] ASDIRECTED Care 06/21/17 11:56 Active RT Incentive Spirometry [RC] ASDIRECTED Care 06/21/17 11:56 Active Urinary Catheter Assessment [RC] Q12H Care 06/21/17 08:00 Active Vital Signs [RC] Q4H Care 06/21/17 11:56 Active Consult to Physician [CONS] Routine Cons 06/21/17 11:55 Active PT Evaluation and Treatment [CONS] Routine Cons 06/21/17 11:55 Active BMP [BASIC METABOLIC PANEL,BMP] [CHEM] AM Lab 06/23/17 05:11 Ordered HEMOGLOBIN/HEMATOCRIT,HH [HEME] DAILY Lab 06/23/17 06:00 Ordered HEMOGLOBIN/HEMATOCRIT,HH [HEME] DAILY Lab 06/24/17 06:00 Ordered Acetaminophen/oxyCODONE [Percocet 325-5 MG] Med 06/22/17 08:00 Active 1 - 2 tab PO Q4H PRN Alum Hydrox/Mag Hydrox/Simeth [Mag-Al Plus] Med 06/21/17 11:58 Active 30 ml PO Q4H PRN Aspirin [Ecotrin] Med 06/22/17 09:00 Active 325 mg PO BID Bisacodyl [Dulcolax] Med 06/21/17 11:58 Active 10 mg RECTAL DAILY PRN Celecoxib [CeleBREX] Med 06/22/17 09:00 Active 200 mg PO BID Docusate Sodium [Colace] Med 06/21/17 21:00 Active 100 mg PO BID Famotidine [Pepcid] Med 06/22/17 09:00 Active 40 mg PO DAILY HYDROmorphone [Dilaudid] Med 06/22/17 08:00 Active 0.5 - 1 mg IVPUSH Q3H PRN Insulin Aspart [NovoLOG] Med 06/21/17 17:00 Active See Protocol SUBCUT TIDAC Lisinopril [Prinivil] Med 06/22/17 09:00 Active 10 mg PO DAILY Ondansetron [Zofran] Med 06/21/17 11:56 Active 4 mg IV Q6HR PRN Pravastatin [Pravachol] Med 06/21/17 21:00 Active 20 mg PO BEDTIME diphenhydrAMINE [Benadryl] Med 06/21/17 11:58 Active 25 - 50 mg PO Q6H PRN oxyCODONE ER [OxyCONTIN] Med 06/21/17 21:00 Active 10 mg PO Q12HR Antiembolic Hose [OM.PC] Routine Oth 06/21/17 11:56 Ordered Ice Therapy [OM.PC] Routine Oth 06/21/17 11:56 Ordered Sequential Compression Device [OM.PC] Routine Oth 06/21/17 11:56 Ordered Medication Orders Al Hydroxide/Mg Hydroxide (Mag-Al Plus) 30 ml PO Q4H PRN PRN Reason: indigestion Aspirin (Ecotrin) 325 mg PO BID [facility] Bisacodyl (Dulcolax) 10 mg RECTAL DAILY PRN PRN Reason: Constipation Celecoxib (Celebrex) 200 mg PO BID [facility] Diphenhydramine HCl (Benadryl) 25 - 50 mg PO Q6H PRN PRN Reason: Itching Docusate Sodium (Colace) 100 mg PO BID [facility] Last Admin: 06/21/17 21:15 Dose: 100 mg Famotidine (Pepcid) 40 mg PO DAILY [facility] Hydromorphone HCl (Dilaudid) 0.5 - 1 mg IVPUSH Q3H PRN PRN Reason: Pain Lactated Ringer's (Ringers, Lactated) 1,000 mls @ 100 mls/hr IV ASDIRECTED [facility] Last Admin: 06/22/17 03:10 Dose: 100 mls/hr Infusion: 06/22/17 02:06 Dose: 100 mls/hr Admin: 06/21/17 16:06 Dose: 100 mls/hr Infusion: 06/21/17 16:06 Dose: 100 mls/hr Admin: 06/21/17 10:08 Dose: 100 mls/hr Insulin Aspart (Novolog) 0 unit SUBCUT TIDAC [facility]; Protocol Last Admin: 06/22/17 07:45 Dose: Not Given Admin: 06/21/17 17:41 Dose: Not Given Lisinopril (Prinivil) 10 mg PO DAILY [facility] Ondansetron HCl (Zofran) 4 mg IV Q6HR PRN PRN Reason: NAUSEA/VOMITING Oxycodone HCl (Oxycontin) 10 mg PO Q12HR [facility] Last Admin: 06/21/17 21:16 Dose: 10 mg Oxycodone/Acetaminophen (Percocet 325-5 Mg) 1 - 2 tab PO Q4H PRN PRN Reason: Pain Pravastatin Sodium (Pravachol) 20 mg PO BEDTIME [facility] Last Admin: 06/21/17 21:16 Dose: 20 mg Scopolamine (Transderm-Scop) 1.5 mg TRDERM ONARRIVE [facility] Last Admin: 06/21/17 10:08 Dose: 1.5 mg - Assessment Assessment (Free Text/Narrative):: POD#1 R TKA - Plan Plan (Free Text/Narrative):: DC IV fluids DC [employer]PER[employer] DC watson dilaudid IV for breakthrough pain ASA 325mg PO BID as DVT prophylaxis PT today dressing changed if pain controlled, does well with PT, and tolerates PO intake, may d/ch to home this afternoon
[2017-06-22] MEDS ORDERED: Lisinopril 10 MG Tab PO SCH (09:00)
[2017-06-22] MEDS ORDERED: Famotidine 20 MG Tab PO SCH (09:00)
[2017-06-22] MEDS ORDERED: Aspirin 325 MG Tab.EC PO SCH (09:00)
[2017-06-22] MEDS ORDERED: Celecoxib 100 MG Cap PO SCH (09:00)
[2017-06-22] MEDS: Docusate Sodium 100 MG Cap PO SCH (09:01)
[2017-06-22] MEDS: oxyCODONE ER 10 MG TAB.ER PO SCH (09:02)
--- NOTE | 2017-06-22 10:33 | OR ---
SURGEON: Perla Sanford MD DATE OF PROCEDURE: 06/21/2017 PREOPERATIVE DIAGNOSIS: Degenerative joint disease, right knee, tricompartmental. POSTOPERATIVE DIAGNOSIS: Degenerative joint disease, right knee, tricompartmental. PROCEDURE: Right total knee arthroplasty using patient specific instrumentation. CHEMICAL LAB TECHNICIAN: Esperanza Prieto PA-C and Manish Levine MD, PGY 2. ANESTHESIA: Spinal with sedation. ESTIMATED BLOOD LOSS: 50 mL. TOURNIQUET TIME: 50 minutes. COMPLICATIONS: None. DVT PROPHYLAXIS: PAS boot and MAGO hose to the nonoperative leg. IMPLANTS USED: Jose Persona femoral component size 10 standard (LPS), tibial component size F, 11 mm all-polyethylene articular surface, and 35 mm all-polyethylene patella. INTAOPEARTIVE FINDINGS: Showed tricompartmental degenerative changes with osteophyte formation. No significant synovitis was noted. BRIEF HISTORY: Hector is a 51-year-old male who has had complaint of progressive right knee pain. He had failed conservative treatment. Due to his lack of response to conservative treatment, I did recommend surgical intervention. The risks and goals of procedure were discussed with the patient and were documented preoperatively. He agreed to proceed. DESCRIPTION OF PROCEDURE: The patient was properly identified and brought to the operating room. The patient was then transferred from the operating room cart and placed on the operating table in a supine position. Anesthesia was administered by the anesthesia staff. After adequate anesthesia was obtained, a well-padded tourniquet was applied to the surgical lower extremity. Cobb catheter was placed. The lower extremity was then prepped in standard fashion using ChloraPrep solution. It was then sterilely draped. A time-out was performed to ensure correct site and procedure. Preoperative antibiotics were given along with one gram of tranexamic acid IV. The surgical site had been marked preoperatively. An Esmarch was used to exsanguinate the right lower extremity and the tourniquet was inflated. An incision was made over the anterior aspect of the knee. The subcutaneous tissues were dissected down to the level of the fascia. A medial parapatellar approach to the knee was made. A portion of the infrapatellar fat pad was then excised. The distal femur was then exposed. The femoral patient-specific cutting guide was then placed. Pins were also placed. The distal femoral cutting block was placed and the distal femoral cut was made. Instrumentation was then removed. Both Whitesides' line and the epicondylar axis were then marked with electrocautery. The 4-in-1 cutting block was placed. This was placed in a slightly externally rotated position, which corresponded well with the previously drawn lines. The cutting guide was then pinned into position. An Eliel wing guide was used to check the depth of resection of our anterior condylar cut and it was felt that no notching would occur. The anterior condylar cut was then made followed by the posterior condylar cut. Both the posterior chamfer and anterior chamfer cuts were then made. The cutting block was then removed along with the excess bony remnants. We then turned our attention to the tibia. The anterior cruciate ligament and posterior cruciate ligament were released and a posterior cruciate ligament retractor was placed to allow the tibia to be pulled anteriorly. The tibial patient-specific guide was then placed on the proximal tibia. This fit anatomically. The pins were then placed. The proximal tibia cutting guide was then placed and screwed into position. The proximal tibial resection was then made with care being taken to protect the patellar tendon. The bony resection was then removed. The remainder of the medial and lateral meniscus were then excised. Care was taken to protect the popliteus tendon. The tibia was then sized to the appropriate size. The distal femur was then elevated. The posterior capsule was stripped off the distal femur both medially and laterally. The posterior capsule along with the medial and lateral gutters were then injected with a standard mixture consisting of clonidine, epinephrine, Toradol, and Ropivacaine, unless any allergies were found preoperatively. The femoral component was then placed onto the distal femur in a slightly lateral position. This fit the femur well. A box cut was then made without difficulty. This was then removed. The tibial trial along with the polyethylene liner was then placed. The knee came easily into full extension and was stable to varus and valgus stressing both in full extension and flexion. Any additional releases were performed at this time. We then returned our attention to the patella. The patella was everted and towel clamps were used to hold the patella in position. It was resected to a 15 millimeter thickness. It was then sized to the appropriate size. It was prepared in the usual fashion after placing the predetermined size clamps. This was placed in a slightly superior and medial position. The clamp was then removed. The patellar trial button was placed. The knee was taken through a range of motion using the no-touch technique. The patella tracked centrally. A drop rory was then placed to check alignment. All instruments were then removed from the knee. The tibial sizer was then placed on the tibia. The tibia was prepared in the usual fashion using the reamer and broach. This was then removed. All bony surfaces were copiously irrigated with Pulsavac solution. They were then suctioned dry. Cement was prepared on the back table in the usual manner. Once it was prepared, the bone ends were again suctioned dry. The tibia was cemented into place first. This was malleted into position. Excess cement was then cleared. The femur was then placed in a similar manner. We placed the polyethylene trial into place and the knee was brought into full extension. An axial load was placed while keeping the knee in full extension. The patella button was also cemented into position and the clamp was used to hold this in place as the cement was allowed to cure. The wound was again copiously irrigated with saline solution using a Pulsavac psychologists. Following this 1 g of tranexamic acid was applied to the wound topically. After we had adequate curing of the cement, the knee was again taken through a range of motion. The size of the polyethylene was then determined. The polyethylene trial was then removed. The tibial tray was suctioned to make sure there was no remaining soft tissue or cement. Excess cement was cleared from around the edges of the prosthesis as well. The tourniquet was then deflated. We were able to observe for any excess bleeding and none was noted. Electrocautery was used to maintain hemostasis. An additional gram of tranexamic acid was given IV. The retractors were again placed and the predetermined polyethylene was then placed. This was locked into position without difficulty. The knee was again taken through a range of motion with no change from the prior exam. The fascial layer was closed with Number One Vicryl. The subcutaneous tissues were closed with 2-0 Vicryl. The skin was closed with yessy. Xeroform gauze was placed over the wound and a bulky dressing was applied. The patient was then awakened from anesthesia and transferred back to the operating room cart. They were brought to the recovery room in stable condition. All needle and sponge counts were correct. KIP / ELSA /[id number]
--- NOTE | 2017-06-22 11:08 | PCM.SN ---
- Free Text/Narrative Note: d/ch summary #[id number]
[2017-06-22 11:43] VITALS: BP 138/61
--- NOTE | 2017-06-23 15:17 | DISCH ---
DATE OF DISCHARGE: 06/22/2017 PRIMARY CARE PHYSICIAN: Ayan Russell M.D. ADMITTING DIAGNOSIS: Degenerative joint disease, right knee, tricompartmental. OTHER MEDICAL DIAGNOSES: 1. Sleep apnea. 2. Hypertension. 3. Type 2 diabetes. 4. Anxiety. DISCHARGE DIAGNOSES: 1. Degenerative joint disease, right knee, tricompartmental. 2. Sleep apnea. 3. Hypertension. 4. Type 2 diabetes. 5. Anxiety. BRIEF HISTORY: Hector is a 51-year-old male who has had progressive complaints of right knee pain. He has tried and failed conservative treatment. At that time, surgical treatment was recommended. On June 21, 2017, the patient underwent a right total knee arthroplasty using patient-specific instrumentation done by Dr. Perla Sanford. This was done under spinal anesthesia with sedation. Estimated blood loss was 50 mL. Tourniquet time was 50 minutes. There were no known complications. Upon completion of the procedure, the patient was discharged to the PACU and subsequently to [facility] for postoperative care. HOSPITAL COURSE: Postoperatively, the patient did well. His pain was controlled with a combination of oral and IV pain medications. He received 2 doses of Ancef postoperatively for a total of 24 hours of antibiotic coverage. The hospitalist service followed him through his hospital stay for the management of his medical comorbidities. Physical Therapy followed him through his hospital stay. Aspirin 325 mg by mouth twice daily was started on postoperative day #1 as DVT prophylaxis. His vital signs have been stable. He has been afebrile. His hemoglobin on the morning of June 22 was 13.1. He feels comfortable with discharge to home. DISCHARGE MEDICATIONS: 1. OxyContin 10 mg. 2. Percocet 5/325 mg. 3. Celebrex 200 mg. 4. Colace 100 mg. 5. Aspirin 325 mg. DISCHARGE INSTRUCTIONS: 1. Follow up in clinic in 10 to 14 days from the date of procedure. This appointment has been made for the patient. 2. Outpatient physical therapy 2 to 3 times per week for 4 to 6 weeks. 3. No driving for a minimum of 4 weeks, status post right total knee arthroplasty. 4. MAGO hose, on in the morning, off in the evening. 5. Polar Care to the right knee as needed. 6. He is to change his dressing over the weekend at home. He will place a new Aquacel dressing and leave that in place until clinic followup. Should he have questions or concerns prior to followup, he has been advised to return to clinic or call. For complete medication reconciliation and discharge instructions, please refer back to the patient's EHR. JARETT HUNTER /[id number]
== END 2017-06-22 13:30 | disposition home or self-care (01) | DRG 470 ==
LOC: MW.SDS 09:14 → MW.MS 15:53
PROVIDERS: ADMIT Orthopaedic Surgery; ATTEND Orthopaedic Surgery
PROC: 0SRC0J9 Replacement of Right Knee Joint with Synthetic Substitute, Cemented, Open Approach (ICD-10-PCS; principal; 2017-06-21)
DX: M17.11 Unilateral primary osteoarthritis, right knee (principal); M25.761 Osteophyte, right knee; I10 Essential (primary) hypertension; E78.00 Pure hypercholesterolemia, unspecified; E11.9 Type 2 diabetes mellitus without complications; I49.9 Cardiac arrhythmia, unspecified; G47.30 Sleep apnea, unspecified; E66.9 Obesity, unspecified; Z68.30 Body mass index [BMI] 30.0-30.9, adult; Z79.899 Other long term (current) drug therapy
CPT/HCPCS: 36415; 73560-26-RT; 73560-RT; 80048; 82962; 85014; 85018; 85025; 86850; 86900; 86901; 97161-GP; 97530-GP; A9270-GY; J0690; J1170; J1200; J1885; J2250; J2405; J2704; J3010; J7120

== ENCOUNTER 2021-06-23 08:37 | Day surgery (SDC) | payer OTHER ==
[~2021-06-23 08:37] MED LIST changes: -Acetaminophen 1,000 MG in Premix Bag 1 BAG IV SCH; -Famotidine 20 MG/2 ML SDV IVPUSH SCH; -Ketorolac 30 MG/ML SDV IVPUSH SCH; +Lactated Ringers 1,000 ML IV SCH; -Ropivacaine 49.25 ML, Ketorolac 30 MG, EPINEPHrine 0.5 MG, cloNIDine 80 MCG in Sodium C... INJECT SCH; -Scopolamine 1.5 MG Transdermal Patch TRDERM SCH; -Tranexamic Acid 4,000 MG in Sodium Chloride 0.9% 100 ML IV SCH; -ceFAZolin 2 GM in Premix Bag 1 BAG IV SCH; +cefOXitin 2 GM in Premix Bag 1 BAG IV ONE; -oxyCODONE ER 10 MG TAB.ER PO SCH
[2021-06-23] MEDS ORDERED: cefOXitin 1 GM Vial ONE (09:14)
[2021-06-23] MEDS ORDERED: Lidocaine 2% 5 ML SDV ONE (09:14)
[2021-06-23] MEDS ORDERED: fentaNYL 100 MCG/2 ML SDV ONE (09:14)
[2021-06-23] MEDS ORDERED: propofoL 50 ML ONE (10:12)
[2021-06-23] MEDS ORDERED: Propofol 200 MG/20 ML SDV ONE (10:46)
[2021-06-23] MEDS ORDERED: Lactated Ringers 1,000 ML IV SCH (11:00)
[2021-06-23 11:24] VITALS: BP 108/67; PULSE 72
== END 2021-06-23 11:26 | disposition home or self-care (01) ==
LOC: MW.SDS 08:37
PROVIDERS: ATTEND Surgery
DX: Z12.11 Encounter for screening for malignant neoplasm of colon (principal); D12.3 Benign neoplasm of transverse colon; K57.30 Diverticulosis of large intestine without perforation or abscess without bleeding; I10 Essential (primary) hypertension; G47.30 Sleep apnea, unspecified; E11.9 Type 2 diabetes mellitus without complications; E66.01 Morbid (severe) obesity due to excess calories; E78.00 Pure hypercholesterolemia, unspecified; Z68.41 Body mass index [BMI] 40.0-44.9, adult; Z83.71 Family history of colonic polyps; Z79.82 Long term (current) use of aspirin; Z79.899 Other long term (current) drug therapy; Z79.84 Long term (current) use of oral hypoglycemic drugs; Z98.890 Other specified postprocedural states; Z87.891 Personal history of nicotine dependence
CPT/HCPCS: 45380; 82947; J0694; J2704; J3010; J7120; 00812